=== PATIENT | male | born 1990 | race American Indian/Alaskan Native ===

== ENCOUNTER 2019-01-01 12:55 | Emergency (ER) | payer SELFPAY ==
[~2019-01-01] VITALS: Ht 188 cm; Wt 89.5 kg
[2019-01-01] MEDS ORDERED: NORCO 325 MG-51 TAB PO (14:16)
[2019-01-01] MEDS ORDERED: AMOXICILLIN 50500 MG PO (14:17)
[2019-01-01 14:23] VITALS: BP 132/76; PULSE 66; TEMP 98.4
== END 2019-01-01 14:34 | disposition home or self-care (01) ==
LOC: COL.ER 12:55
DX: K02.9 Dental caries, unspecified (principal)